=== PATIENT | female | born 1995 ===

== ENCOUNTER 2017-11-16 00:48 | Emergency (ER) | payer OTHER ==
--- NOTE | 2017-11-16 02:12 | ED GENERAL ADULT ---
History of Present Illness General Chief Complaint: General Adult Stated Complaint: PT FLEW IN FROM [place] C/O NIX FEVER HX MS Source: patient, family Exam Limitations: no limitations Vital Signs & Intake/Output Vital Signs & Intake/Output . Allergies Coded Allergies: MDX - Latex (LATEX) (UNKNOWN 12/11/12) MDX - Oxycodone (OXYCODONE) (RASH 09/09/15) Reconcile Medications Cyclobenzaprine HCl 10 MG TABLET 1 TAB PO 4 TIMES/DAY PRN MUSCLE SPASM Ibuprofen 600 MG TABLET 1 TAB PO TID PRN pain with food Ondansetron (Zofran Odt) 4 MG TAB.RAPDIS 1 TAB SL TID PRN nausea Sumatriptan Succinate (Imitrex) 25 MG TABLET 1 TAB PO TID PRN MIGRAINE Triage Nurses Notes Reviewed? yes Onset: Gradual Duration: hour(s): Timing: recent history Injury Environment: home Severity: moderate Modifying Factors: Improves With: rest. Associated Symptoms: nausea HPI: 22 yo woman h/o MS and migraines presents with a migraine headache for the past 5-6 hours. "I got on a plane in [place] and as soon as the plane went into the air, I got a migraine." She notes nausea, mild photophobia. No visual defects, numbness, tingling consistent with her prior MS flares. She will follow up with her MS physician tomorrow. Past History Travel History Traveled to [place] past 21 day No Medical History Any Pertinent Medical History? none Neurological: migraine, multiple sclerosis Surgical History Surgical History: none Family History Hx Contributory? No Review of Systems Review of Systems Constitutional: Reports: no symptoms. EENTM: Reports: no symptoms. Respiratory: Reports: no symptoms. Cardiovascular: Reports: no symptoms. GI: Reports: no symptoms. Genitourinary: Reports: no symptoms. Musculoskeletal: Reports: no symptoms. Skin: Reports: no symptoms. Neurological/Psychological: Reports: no symptoms. Hematologic/Endocrine: Reports: no symptoms. Immunologic/Allergic: Reports: no symptoms. All Other Systems: Reviewed and Negative Physical Exam Physical Exam General Appearance: well developed/nourished, no apparent distress Head: atraumatic, mild scalp muscle tenderness to palpation. Eyes: Bilateral: normal appearance, PERRL, EOMI. Ears, Nose, Throat: normal pharynx, normal ENT inspection Neck: normal inspection, supple, full range of motion Respiratory: normal breath sounds, chest non-tender, no respiratory distress, quiet respiration, lungs clear Cardiovascular: regular rate/rhythm Gastrointestinal: normal bowel sounds, soft, non-tender, no organomegaly Back: normal inspection, normal range of motion Extremities: normal inspection, normal capillary refill, normal range of motion, no edema Neurologic/Psych: no motor/sensory deficits, awake, alert, oriented x 3 Skin: intact, normal color, warm/dry Core Measures ACS in differential dx? No CVA/TIA Diagnosis: No Sepsis Present: No Sepsis Focused Exam Completed? No Progress Differential Diagnoses I considered the following diagnoses in my evaluation of the patient: migraine vs MS vs other. Plan of Care: Current Medications Sig/[place] Start time Last Medication Dose Stop Time Status Admin Cyclobenzaprine HCl 10 MG ONCE ONE 11/16 229 UNVr (Flexeril 10MG Tab) 11/16 230 Ibuprofen 800 MG ONCE ONE 11/16 229 UNVr (Motrin) 11/16 230 Lorazepam 1 MG ONE ONE 11/16 229 UNVr (Ativan) 11/16 230 Ondansetron HCl 4 MG ONCE ONE 11/16 229 UNVr (Zofran) 11/16 230 Prednisone 30 MG ONCE ONE 11/16 229 UNVr 11/16 023 Microbiology 11/16 0128 NASOPHARYN: Influenza Virus A & B Rapid Smear - CAN Cancelled: Cancelled via OE: Per MD Decision Initial ED EKG: none Departure Departure Disposition: HOME OR SELF CARE Condition: Stable Clinical Impression Primary Impression: Migraine Secondary Impressions: Multiple sclerosis Referrals: Patient Has No Primary Care Dr (PCP/Family) Departure Forms: Customer Survey General Discharge Information Prescriptions: Current Visit Scripts Ibuprofen 1 TAB PO TID PRN pain #30 TAB with food Ondansetron (Zofran Odt) 1 TAB SL TID PRN nausea #10 TAB Cyclobenzaprine HCl 1 TAB PO 4 TIMES/DAY PRN MUSCLE SPASM #30 TAB Sumatriptan Succinate (Imitrex) 1 TAB PO TID PRN MIGRAINE #6 TAB Ref 1 Comments 11/16/17, 2:33AM... pt declines IV and blood work... pt's neuro exam is non focal... she will follow up with her MS doctor tomorrow... close follow up encouraged. Critical Care Note Critical Care Note Critical Care Time: non-applicable
[2017-11-16] MEDS ORDERED: CYCLOBENZAPRINE10 M1 PO (02:33)
[2017-11-16] MEDS ORDERED: ZOFRAN ODT4 M1 SL (02:33)
[2017-11-16] MEDS ORDERED: IBUPROFEN600 M1 PO (02:33)
[2017-11-16] MEDS ORDERED: IMITREX25 M1 PO (02:33)
== END 2017-11-16 02:50 ==
LOC: ERH 00:48
DX: G35 Multiple sclerosis (principal); G43.909 Migraine, unspecified, not intractable, without status migrainosus
CPT/HCPCS: 87804; 87804-59; J3101; J7512